=== PATIENT | female | born 1970 | race Caucasian/White ===

== ENCOUNTER 2019-04-13 14:28 | Inpatient (IN) ==
[2019-04-13] MEDS ORDERED: ACETAMINOPHEN 325 MG TABLET PO PRN (16:05)
[2019-04-13 16:59] LABS: Basophils # 0.1 10*3/uL (0.0-0.2); Basophils % 0.7 % (0.0-0.8); Eosinophils # 0.1 10*3/uL (0.0-0.87); Eosinophils % 0.9 % (0.00-10.9); Hematocrit 35.1 VOL% (35.7-47.0); Hemoglobin 11.6 GM/DL (12.0-16.0); Immature Granulocytes % 0.6 %; Immature Granulocytes Absolute 0.07 #; Lymphocytes # 2.5 10*3/uL (1.4-4.0); Lymphocytes % 20.5 % (21.3-54.2); Mean Corpuscular Volume 94.1 FL (87-102); Mean Platelet Volume 11.1 FL (9.6-12.0); Monocytes % 7.7 % (1.7-12.7); Neutrophils % 69.6 % (38.7-73.9); Platelet Count 248 T/CUMM (130-400); Red Blood Count 3.73 MC/CUMM (3.8-5.5); Red Cell Distribution Width 15.2 % (9.3-17.3); White Blood Count 12.1 T/CUMM (4-12)
[2019-04-13 17:24] LABS: Albumin 3.1 G/DL (3.4-5.0); Bilirubin,Total 0.6 MG/DL (0.2-1.0); Calcium 8.1 MG/DL (8.5-10.1); Osmolality,Calculated 290.6 MOS/KG (273-304)
[2019-04-13] MEDS: methylPREDNISolone SOD SUC 40 MG/1 ML VIAL IV SCH (18:08)
[2019-04-13] MEDS: PIPERACILLIN/TAZOBACTAM 3,375 MG in SODIUM CHLORIDE 0.9% 100 ML IV SCH ×2 (18:08→23:43)
[2019-04-13] MEDS ORDERED: PROMETHAZINE 25 MG TABLET PO PRN (18:29)
[2019-04-13] MEDS: FORMOTEROL 20 MCG/2 ML NEB RESP TX SCH (19:24)
[2019-04-13] MEDS: ALBUTEROL/IPRATROPIUM 3 ML NEB RESP TX SCH (19:24)
[2019-04-13] MEDS ORDERED: CHLORPHENIRAMINE PHENYLEPHRINE PO PRN (21:00)
[2019-04-13] MEDS: POTASSIUM CHLORIDE 20 MEQ TABLET PO SCH (21:08)
[2019-04-13] MEDS: carBAMazepine 200 MG TABLET PO SCH (21:09)
[2019-04-13] MEDS: FUROSEMIDE 20 MG TABLET PO SCH (21:09)
[2019-04-13] MEDS: ENOXAPARIN 40 MG/0.4 ML SYRINGE SUBCUT SCH (21:09)
[2019-04-13] MEDS: PREGABALIN 75 MG CAPSULE PO SCH (21:09)
[2019-04-13] MEDS: LISINOPRIL 20 MG TABLET PO SCH (21:09)
[2019-04-13] MEDS: ESCITALOPRAM 10 MG TABLET PO SCH (21:20)
[2019-04-13] MEDS: LEVOFLOXACIN INJ 750 MG in PREMIX 1 EACH IV SCH (22:07)
[2019-04-14] MEDS: ALBUTEROL/IPRATROPIUM 3 ML NEB RESP TX SCH ×4 (00:57→19:16)
[2019-04-14] MEDS: oxyCODONE/ACETAMINOPHEN 5-325 MG TABLET PO PRN ×3 (03:35→22:48)
[2019-04-14] MEDS: methylPREDNISolone SOD SUC 40 MG/1 ML VIAL IV SCH ×2 (03:36→16:37)
[2019-04-14] MEDS: PIPERACILLIN/TAZOBACTAM 3,375 MG in SODIUM CHLORIDE 0.9% 100 ML IV SCH (04:00)
[2019-04-14 04:32] LABS: Basophils # 0.1 10*3/uL (0.0-0.2); Basophils % 0.4 % (0.0-0.8); Eosinophils % 0.1 % (0.00-10.9); Hematocrit 39.3 VOL% (35.7-47.0); Hemoglobin 12.3 GM/DL (12.0-16.0); Immature Granulocytes % 0.7 %; Immature Granulocytes Absolute 0.09 #; Lymphocytes # 1.4 10*3/uL (1.4-4.0); Lymphocytes % 11.4 % (21.3-54.2); Mean Corpuscular HGB Conc 31.3 GM/DL (32-36); Mean Corpuscular Volume 95.2 FL (87-102); Monocytes % 2.9 % (1.7-12.7); Neutrophils % 84.5 % (38.7-73.9); Platelet Count 287 T/CUMM (130-400); Red Blood Count 4.13 MC/CUMM (3.8-5.5); White Blood Count 12.1 T/CUMM (4-12)
[2019-04-14 04:58] LABS: Albumin 3.3 G/DL (3.4-5.0); Bilirubin,Total 0.4 MG/DL (0.2-1.0); Calcium 8.3 MG/DL (8.5-10.1); Osmolality,Calculated 292.6 MOS/KG (273-304); Total Protein 6.6 G/DL (6.4-8.3)
[2019-04-14] MEDS ORDERED: PHENTERMINE 37.5 MG PO SCH (07:30)
[2019-04-14] MEDS: FORMOTEROL 20 MCG/2 ML NEB RESP TX SCH ×2 (07:33→19:16)
[2019-04-14] MEDS ORDERED: ESCITALOPRAM 10 MG TABLET PO SCH (09:00)
[2019-04-14] MEDS: PREGABALIN 75 MG CAPSULE PO SCH ×2 (09:28→21:13)
[2019-04-14] MEDS: FUROSEMIDE 20 MG TABLET PO SCH ×2 (09:28→21:12)
[2019-04-14] MEDS: FEBUXOSTAT 80 MG TABLET PO SCH (09:28)
[2019-04-14] MEDS: PANTOPRAZOLE 40 MG TABLET PO SCH (09:29)
[2019-04-14] MEDS: LISINOPRIL 20 MG TABLET PO SCH ×2 (09:29→21:13)
[2019-04-14] MEDS: carBAMazepine 200 MG TABLET PO SCH ×2 (09:29→21:14)
[2019-04-14] MEDS: guaiFENesin/DM ER 600-30 MG TABLET PO SCH ×2 (09:30→21:13)
[2019-04-14] MEDS: POTASSIUM CHLORIDE 20 MEQ TABLET PO SCH ×2 (09:30→21:12)
[2019-04-14] MEDS ORDERED: carBAMazepine 200 MG TABLET PO SCH (12:00)
[2019-04-14] MEDS ORDERED: PIPERACILLIN/TAZOBACTAM 3,375 MG in SODIUM CHLORIDE 0.9% 100 ML IV SCH (14:00)
[2019-04-14] MEDS ORDERED: ONDANSETRON 4 MG/2 ML VIAL IV PRN (20:13)
[2019-04-14] MEDS: MICONAZOLE 2% CREAM 57 GM TUBE TOP SCH (21:12)
[2019-04-14] MEDS: ESCITALOPRAM 10 MG TABLET PO SCH (21:12)
[2019-04-14] MEDS: ENOXAPARIN 40 MG/0.4 ML SYRINGE SUBCUT SCH (21:13)
[2019-04-14 22:02] LABS: Apearance,Urine CLEAR (Clear); Bilirubin,Urine Negative (Negative); Blood, Urine Negative (Negative); Glucose,Urine (UA) Negative (Negative); Ketones,Urine 5 mg/dL (Negative); Mucus,Urine Occasional /LPF (Occasional); Nitrite,Urine Negative (Negative); Protein,Urine Negative; RBC,Urine <1 /HPF (0-4); Squamous Epithelial Cell,Urine Occasional /HPF (0-10); Urine Color Yellow (Yellow); Urine Specific Gravity 1.026 (1.001-1.035); Urine Urobilinogen < 2.0 EU/DL (0.2-1.0); WBC,Urine 1 /HPF (0-6)
[2019-04-14] MEDS: LEVOFLOXACIN INJ 750 MG in PREMIX 1 EACH IV SCH (22:48)
[2019-04-15] MEDS: ALBUTEROL/IPRATROPIUM 3 ML NEB RESP TX SCH ×2 (00:24→07:30)
[2019-04-15] MEDS: methylPREDNISolone SOD SUC 40 MG/1 ML VIAL IV SCH (04:39)
[2019-04-15 05:08] LABS: Basophils % 0.3 % (0.0-0.8); Hematocrit 39.1 VOL% (35.7-47.0); Hemoglobin 12.2 GM/DL (12.0-16.0); Immature Granulocytes % 0.9 %; Immature Granulocytes Absolute 0.13 #; Lymphocytes # 1.9 10*3/uL (1.4-4.0); Lymphocytes % 13.7 % (21.3-54.2); Mean Corpuscular HGB Conc 31.2 GM/DL (32-36); Mean Corpuscular Volume 97.3 FL (87-102); Mean Platelet Volume 11.1 FL (9.6-12.0); Monocytes % 6.8 % (1.7-12.7); Neutrophils % 78.3 % (38.7-73.9); Platelet Count 298 T/CUMM (130-400); Red Blood Count 4.02 MC/CUMM (3.8-5.5); Red Cell Distribution Width 15.2 % (9.3-17.3); White Blood Count 13.9 T/CUMM (4-12)
[2019-04-15 05:52] LABS: Calcium 8.3 MG/DL (8.5-10.1); Thyroid Stimulating Hormone 0.978 uIU/ml (0.358-3.74)
[2019-04-15 05:59] LABS: Folate 4.2 NG/ML (5.4-24.0)
[2019-04-15] MEDS: FORMOTEROL 20 MCG/2 ML NEB RESP TX SCH (07:30)
[2019-04-15 07:56] VITALS: BP 98/51
[2019-04-15] MEDS: FEBUXOSTAT 80 MG TABLET PO SCH (08:42)
[2019-04-15] MEDS: guaiFENesin/DM ER 600-30 MG TABLET PO SCH (08:43)
[2019-04-15] MEDS: carBAMazepine 200 MG TABLET PO SCH (08:43)
[2019-04-15] MEDS: MICONAZOLE 2% CREAM 57 GM TUBE TOP SCH (08:43)
[2019-04-15] MEDS: PREGABALIN 75 MG CAPSULE PO SCH (08:43)
[2019-04-15] MEDS: FUROSEMIDE 20 MG TABLET PO SCH (08:43)
[2019-04-15] MEDS: PANTOPRAZOLE 40 MG TABLET PO SCH (08:43)
[2019-04-15] MEDS: POTASSIUM CHLORIDE 20 MEQ TABLET PO SCH (08:43)
[2019-04-15] MEDS: LISINOPRIL 20 MG TABLET PO SCH (08:43)
== END 2019-04-15 10:10 | disposition home or self-care (01) | DRG 191 ==
LOC: N.5E → OBSVTOIN 14:54 → SUATTDRO 14:54
PROVIDERS: ADMIT Internal Medicine; ATTEND Hospitalist

== ENCOUNTER 2020-12-18 19:27 | Inpatient (IN) ==
[2020-12-18] MEDS ORDERED: PIPERACILLIN/TAZOBACTAM 3,375 MG in SODIUM CHLORIDE 0.9% 100 ML IV STA (20:09)
[2020-12-18] MEDS ORDERED: DEXAMETHASONE 4 MG/1 ML VIAL IV STA (20:09)
[2020-12-18] MEDS ORDERED: ONDANSETRON 4 MG/2 ML VIAL IV STA (20:09)
[2020-12-18 20:51] LABS: ABG HCO3 26.9 MMOL/L (20-26); ABG Oxygen Saturation 94.1 % (95-100); ABG PCO2 39.4 MM HG (35-48); ABG PH 7.446 (7.35-7.45); ABG PO2 67.1 MM HG (80-95); ABG TCO2 23.1 MMOL/L (23-27); Allen Test Positive
[2020-12-18 21:19] LABS: Hematocrit 40.1 VOL% (35.7-47.0); Hemoglobin 13.4 GM/DL (12.0-16.0); Immature Granulocytes % 0.9 %; Immature Granulocytes Absolute 0.04 #; Lymphocytes # 0.9 10*3/uL (1.4-4.0); Lymphocytes % 18.8 % (21.3-54.2); Mean Corpuscular HGB Conc 33.4 GM/DL (32-36); Mean Corpuscular Volume 90.5 FL (87-102); Mean Platelet Volume 11.5 FL (9.6-12.0); Monocytes % 12.7 % (1.7-12.7); Neutrophils % 67.6 % (38.7-73.9); Platelet Count 179 T/CUMM (130-400); Red Blood Count 4.43 MC/CUMM (3.8-5.5); Red Cell Distribution Width 12.6 % (9.3-17.3); White Blood Count 4.6 T/CUMM (4-12)
[2020-12-18 21:43] LABS: Band Neutrophils 4 % (0-10); Lymphocytes 13 % (20-55); Polychromasia Slight; Segmented Neutrophils 72 % (50-85); Total Cells Counted 100
[2020-12-18 21:45] LABS: Atypical Lymphocytes Few; Platelet Estimate Adequate
[2020-12-18 21:46] LABS: INR 1.1; PT Patient Result 11.9 SECS (10.5-12.0)
[2020-12-18 21:59] LABS: Bilirubin,Total 0.6 MG/DL (0.2-1.0); Calcium 7.5 MG/DL (8.5-10.1); Ferritin 850.2 ng/ml (8-252); Osmolality,Calculated 274.5 MOS/KG (273-304); Potassium 2.7 MMOL/L (3.5-5.1); Total Protein 6.3 G/DL (6.4-8.2)
[2020-12-18] MEDS ORDERED: POTASSIUM CHLORIDE RIDER 20 MEQ/100 ML PREMIX IV STA (22:05)
[2020-12-18] MEDS ORDERED: DEXTROSE 50% 25 GM/50 ML VIAL IV PRN (22:28)
[2020-12-18] MEDS ORDERED: ONDANSETRON 4 MG/2 ML VIAL IV PRN (22:28)
[2020-12-18] MEDS ORDERED: MELATONIN 3 MG TABLET PO PRN (22:28)
[2020-12-18] MEDS ORDERED: GLUCAGON 1 MG VIAL IM PRN (22:28)
[2020-12-18] MEDS ORDERED: ACETAMINOPHEN 325 MG TABLET PO PRN (22:28)
[2020-12-18 23:17] LABS: Bacteria,Urine Many /HPF (Few); Bilirubin,Urine Negative (Negative); Blood, Urine Negative (Negative); Glucose,Urine (UA) Negative (Negative); Ketones,Urine Negative (Negative); Mucus,Urine Occasional /LPF (Occasional); Nitrite,Urine Negative (Negative); Protein,Urine 30 MG/DL; RBC,Urine 1 /HPF (0-4); Squamous Epithelial Cell,Urine Occasional /HPF (0-10); Urine Appearance CLEAR (Clear); Urine Color Yellow (Yellow); Urine Specific Gravity 1.021 (1.001-1.035); Urine Urobilinogen < 2.0 EU/DL (0.2-1.0)
[2020-12-19] MEDS: ENOXAPARIN 40 MG/0.4 ML SYRINGE SUBCUT SCH ×3 (00:05→21:37)
[2020-12-19 01:20] VITALS: BP 145/98
[2020-12-19] MEDS: PIPERACILLIN/TAZOBACTAM 3,375 MG in SODIUM CHLORIDE 0.9% 100 ML IV SCH ×3 (06:28→20:48)
[2020-12-19] MEDS: DEXAMETHASONE 4 MG/1 ML VIAL IV SCH (08:37)
[2020-12-19] MEDS: CHOLECALCIFEROL 1,000 UNIT TABLET PO SCH (08:38)
[2020-12-19] MEDS: FAMOTIDINE 20 MG TABLET PO SCH ×2 (08:38→20:48)
[2020-12-19] MEDS: ZINC GLUCONATE 50 MG TABLET PO SCH (08:38)
[2020-12-19] MEDS: CETIRIZINE 10 MG TABLET PO SCH (08:38)
[2020-12-19] MEDS: ASCORBIC ACID 500 MG TABLET PO SCH ×2 (08:38→20:47)
[2020-12-19 09:34] LABS: Bilirubin,Total 0.8 MG/DL (0.2-1.0); Calcium 8.1 MG/DL (8.5-10.1); Osmolality,Calculated 277.7 MOS/KG (273-304); Potassium 2.9 MMOL/L (3.5-5.1); Total Protein 7.2 G/DL (6.4-8.2)
[2020-12-19] MEDS: POTASSIUM CHLORIDE 20 MEQ TABLET PO PRN ×4 (11:43→20:48)
[2020-12-19] MEDS ORDERED: ESCITALOPRAM 10 MG TABLET PO SCH (21:30)
[2020-12-19] MEDS ORDERED: tiZANidine 4 MG TABLET PO SCH (21:30)
[2020-12-19] MEDS: oxyCODONE/ACETAMINOPHEN 5-325 MG TABLET PO PRN (22:06)
[2020-12-20] MEDS: ALBUTEROL INHALER 18 GM INH SCH ×3 (00:48→12:59)
[2020-12-20] MEDS: PIPERACILLIN/TAZOBACTAM 3,375 MG in SODIUM CHLORIDE 0.9% 100 ML IV SCH ×2 (04:31→13:19)
[2020-12-20 05:12] LABS: Basophils % 0.1 % (0.0-0.8); Hematocrit 37.5 VOL% (35.7-47.0); Hemoglobin 12.3 GM/DL (12.0-16.0); Immature Granulocytes % 1.2 %; Lymphocytes # 1.1 10*3/uL (1.4-4.0); Mean Corpuscular HGB Conc 32.8 GM/DL (32-36); Mean Corpuscular Volume 91.5 FL (87-102); Mean Platelet Volume 11.5 FL (9.6-12.0); Monocytes % 11.6 % (1.7-12.7); Neutrophils % 74.1 % (38.7-73.9); Platelet Count 233 T/CUMM (130-400); Red Cell Distribution Width 12.5 % (9.3-17.3); White Blood Count 8.1 T/CUMM (4-12)
[2020-12-20 05:46] LABS: Calcium 7.9 MG/DL (8.5-10.1); Ferritin 661.5 ng/ml (8-252); Potassium 2.8 MMOL/L (3.5-5.1)
[2020-12-20] MEDS ORDERED: POTASSIUM CHLORIDE 20 MEQ TABLET PO ONE ×2 (06:07→15:51)
[2020-12-20] MEDS: CHOLECALCIFEROL 1,000 UNIT TABLET PO SCH (08:40)
[2020-12-20] MEDS: FAMOTIDINE 20 MG TABLET PO SCH (08:40)
[2020-12-20] MEDS: ASCORBIC ACID 500 MG TABLET PO SCH (08:40)
[2020-12-20] MEDS: ZINC GLUCONATE 50 MG TABLET PO SCH (08:40)
[2020-12-20] MEDS: DEXAMETHASONE 4 MG/1 ML VIAL IV SCH (08:40)
[2020-12-20] MEDS: CETIRIZINE 10 MG TABLET PO SCH (08:40)
[2020-12-20] MEDS: oxyCODONE/ACETAMINOPHEN 5-325 MG TABLET PO PRN (08:48)
[2020-12-20] MEDS: POTASSIUM CHLORIDE 20 MEQ TABLET PO PRN (08:48)
[2020-12-20] MEDS: ENOXAPARIN 40 MG/0.4 ML SYRINGE SUBCUT SCH (09:51)
[2020-12-20] MEDS ORDERED: RIVAROXABAN 10 MG TABLET PO SCH (17:00)
[2020-12-20] MEDS ORDERED: MAGNESIUM OXIDE 400 MG TABLET PO SCH (21:00)
[2020-12-21] MEDS ORDERED: DEXAMETHASONE 4 MG TABLET PO SCH (09:00)
== END 2020-12-20 17:20 | disposition home or self-care (01) | DRG 177 ==
LOC: EDUNIT# → EDBD → N.ED 19:27 → SUATTDRO 22:28 → N.EDINP 22:28 → N.CC 12-19 00:01
PROVIDERS: ADMIT Internal Medicine; ATTEND Hospitalist